=== PATIENT | female | born 2000 | race Caucasian/White ===

== ENCOUNTER 2018-10-04 21:08 | Emergency (ER) | payer MEDICAID ==
[~2018-10-04] VITALS: Ht 162.6 cm; Wt 63.5 kg
[2018-10-04 22:00] VITALS: BP_SYST 125
--- NOTE | 2018-10-04 22:15 | NUR ---
Pt brought in by mom w/ c/o of erythma on left posterior thigh with an abcess that she had drained 1 hr prior to arrival. Pt states she doesnt know when it occurs, but is painful. The pain is non radiating, and Pt is afebrile. No other rashes noted. Will continue to monitor.
--- NOTE | 2018-10-04 22:25 | NUR ---
Dr. Mena at [facility] examining Pt.
[2018-10-04] MEDS ORDERED: CEPHALEXIN 500 MG CAPSULE PO ONE (22:30)
[2018-10-04] MEDS ORDERED: KETOROLAC TROMETHAMINE 60 MG/2 ML VIAL IM ONE (22:30)
[2018-10-04] MEDS ORDERED: CEPHALEXIN 500 MG CAPSULE ONE (23:23)
[2018-10-04 23:31] VITALS: BP_SYST 122
--- NOTE | 2018-10-04 23:31 | NUR ---
Patient given written and verbal discharge instructions and verbalizes understanding. ER MD discussed with patient the results and treatment provided. Patient in stable condition. ID arm band removed. Rx of ibuprofen and keflex given. Patient educated on pain management and to follow up with PMD. Pain Scale 0/10. Opportunity for questions provided and answered. Medication side effect fact sheet provided.
== END 2018-10-04 23:32 | disposition home or self-care (01) ==
LOC: SED 21:08
DX: L02.416 Cutaneous abscess of left lower limb (principal); L03.116 Cellulitis of left lower limb; R03.0 Elevated blood-pressure reading, without diagnosis of hypertension
CPT/HCPCS: 96372; 99283; J1885